=== PATIENT | male | born 1995 | race American Indian/Alaskan Native ===

== ENCOUNTER 2017-08-02 08:26 | Outpatient (CLI) | payer MEDICAID ==
[2017-08-02] MEDS ORDERED: XYLOCAINE TOPICAL 4% TP ONE ×2 (09:44→09:54)
== END 2017-08-02 08:27 | disposition home or self-care (01) ==
LOC: WOUND 08:26
PROVIDERS: ATTEND Internal Medicine
DX: L89.892 Pressure ulcer of other site, stage 2 (principal); L97.922 Non-pressure chronic ulcer of unspecified part of left lower leg with fat layer exposed; G80.0 Spastic quadriplegic cerebral palsy; G40.802 Other epilepsy, not intractable, without status epilepticus
CPT/HCPCS: 11042; G0463

== ENCOUNTER 2018-04-19 23:44 | Inpatient (IN) | payer MEDICAID ==
[2018-04-19] MEDS ORDERED: NACL 0.9% 1000 ML 1,000 ML IV ONE (23:54)
--- NOTE | 2018-04-19 23:59 | Emergency Department Report ---
ED Seizure HPI - General Stated Complaint: SEIZURE - History of Present Illness Initial Comments: Patient is 23 years old male with history of cerebral palsy and seizure. Patient on valproic acid and Topamax. Patient brought to the ER via EMS after patient had approximately 9 seizures today according to his mother report. Mother stated that patient missed his evening dose last night. She denied any history of fever, nausea or vomiting. She stated that patient wake up between seizures unable to eat. Mother also denied any recent injury. EMS reported that patient was actively seizing when they got on the scene patient is given 2 mg of Ativan IV and that up or did his seizure. Since then patient did not have any seizure. MD Complaint: seizure -: This morning Description of Episode: loss of consciousness, tonic-clonic movement, post-event confusion Witnessed:: Yes Seizure History: known seizure disorder Place: home Possible Precipitating Event: none - Related Data Home Medications Medication Instructions Recorded Confirmed Last Taken Divalproex Dr [Depakote] 500 mg PO DAILY 05/07/13 05/07/13 05/06/13 20:[address] [Depakote] 750 mg PO HS 05/07/13 05/07/13 05/06/13 20:00 Topiramate [Topamax] 50 mg PO BID 05/07/13 05/07/13 05/06/13 20:00 Allergies Allergy/AdvReac Type Severity Reaction Status Date / Time No Known Allergies Allergy Verified 06/04/13 18:22 ED Review of Systems ROS: Stated complaint: SEIZURE Other details as noted in HPI Comment: All other systems reviewed and negative Constitutional: denies: chills, fever Respiratory: denies: cough, orthopnea, shortness of breath, SOB with exertion, SOB at rest, wheezing Cardiovascular: denies: chest pain, palpitations, dyspnea on exertion Gastrointestinal: denies: abdominal pain, nausea ED Past Medical Hx - Past Medical History Hx Seizures: Yes Additional medical history: crebral palsy - Surgical History Additional Surgical History: tube placement - Social History Smoking Status: Never Smoker Substance Use Type: None - Medications Home Medications: Home Medications Medication Instructions Recorded Confirmed Last Taken Type Divalproex Dr [Depakote] 500 mg PO DAILY 05/07/13 05/07/13 05/06/13 20:[address] [Depakote] 750 mg PO HS 05/07/13 05/07/13 05/06/13 20:00 History Topiramate [Topamax] 50 mg PO BID 05/07/13 05/07/13 05/06/13 20:00 History ED Physical Exam - General Limitations: Altered Mental Status, Physical Limitation General appearance: postictal - Head Head exam: Present: atraumatic, normocephalic, normal inspection - Eye Eye exam: Present: normal appearance - ENT ENT exam: Present: normal exam, normal orophraynx, mucous membranes moist - Neck Neck exam: Present: normal inspection. Absent: tenderness, meningismus - Respiratory Respiratory exam: Present: normal lung sounds bilaterally. Absent: respiratory distress, wheezes, rales, rhonchi, stridor, chest wall tenderness, accessory muscle use, decreased breath sounds, prolonged expiratory - Cardiovascular Cardiovascular Exam: Present: regular rate, normal rhythm, normal heart sounds - GI/Abdominal GI/Abdominal exam: Present: soft, normal bowel sounds. Absent: distended, tenderness, guarding, rebound, rigid, mass, bruit, pulsatile mass, hernia - Neurological Exam Neurological exam: Present: altered - Skin Skin exam: Present: warm, intact, normal color ED Course Vital Signs 04/19/18 04/19/18 04/20/18 23:56 23:57 00:00 Temperature 97.8 F Pulse Rate 95 H 98 H 98 H Respiratory 15 14 15 Rate Blood Pressure 112/71 97/60 Blood Pressure 112/71 [Left] O2 Sat by Pulse 100 100 99 Oximetry 04/20/18 04/20/18 04/20/18 00:15 00:30 00:45 Temperature Pulse Rate 84 56 L 78 Respiratory 13 14 12 Rate Blood Pressure 97/61 125/88 101/73 Blood Pressure [Left] O2 Sat by Pulse 100 Oximetry ED Medical Decision Making - Lab Data Result diagrams: 04/19/18 23:59 04/19/18 23:59 - Medical Decision Making I discussed the patient is , he agreed to admit the patient to medical service. Critical care attestation.: If time is entered above; I have spent that time in minutes in the direct care of this critically ill patient, excluding procedure time. ED Disposition Clinical Impression: Seizure Disposition: DC-09 OP ADMIT IP TO THIS HOSP Is pt being admited?: Yes Condition: Stable
[2018-04-20 00:11] LABS: Basophils # (Auto) 0.1 K/mm3 (0.0-0.1); Basophils % (Auto) 1.3 % (0.0-1.8); Eosinophils % (Auto) 0.8 % (0.0-4.3); Hematocrit 45.2 % (35.5-45.6); Hemoglobin 14.9 gm/dl (11.8-15.2); Lymphocytes # (Auto) 0.8 K/mm3 (1.2-5.4); Lymphocytes % (Auto) 15.1 % (13.4-35.0); Mean Corpuscular HGB Conc 33 % (32-34); Mean Corpuscular Volume 101 fl (84-94); Monocytes # (Auto) 0.2 K/mm3 (0.0-0.8); Monocytes % (Auto) 3.4 % (0.0-7.3); Platelet Count 227 K/mm3 (140-440); Red Blood Count 4.48 M/mm3 (3.65-5.03); Red Cell Distribution Width 13.6 % (13.2-15.2)
[2018-04-20 00:25] LABS: Alanine Aminotransferase 12 units/L (7-56); Albumin 4.5 g/dL (3.9-5); BUN/Creatinine Ratio 13; Blood Urea Nitrogen 9 mg/dL (9-20); Calcium 9.1 mg/dL (8.4-10.2); Hemolysis Index 33
[2018-04-20 00:29] LABS: Bilirubin,Direct < 0.2 mg/dL (0-0.2)
[2018-04-20 00:58] LABS: Bilirubin,Urine NEG (Negative); Blood,Urine LG (Negative); Color,Urine Amber (Yellow); Mucus,Urine 3+ /HPF; Protein,Urine <15 mg/dL mg/dL (Negative)
[2018-04-20 01:06] LABS: RBC,Urine > 182.0 /HPF (0.0-6.0)
[2018-04-20] MEDS ORDERED: DepaCON 500 MG in NACL 0.9% 100 ML IV ONE (01:36)
[2018-04-20] MEDS ORDERED: TYLENOL PO PRN (02:35)
[2018-04-20] MEDS ORDERED: ZOFRAN IV PRN (02:35)
[2018-04-20] MEDS ORDERED: ATIVAN IV PRN (02:36)
--- NOTE | 2018-04-20 05:21 | History and Physical Report ---
CHIEF COMPLAINT: Recurrent seizure attack. HISTORY OF PRESENT ILLNESS: The patient is a 22-year-old male with medical history of cerebral palsy and seizure, who is on Depakote and Topamax and had multiple seizure attacks up to about 9 times within 12-24 hours prior to presentation. There was no history of fever, although the patient's mother said that the patient missed his evening dose of anti-seizure medication prior to presentation. There was no history of nausea and vomiting, no history of trauma or biting of tongue during the seizure. Mother also said that there was no history of shortness of breath or chest pain. PAST MEDICAL HISTORY: Pertinent for cerebral palsy and seizure disorder. PAST SURGICAL HISTORY: Pertinent for tube placement. FAMILY HISTORY: Noncontributory. SOCIAL HISTORY: The patient lives with family. Does not smoke, does not drink alcohol and does not use illicit drugs. MEDICATIONS: The patient is on Depakote 500 mg by mouth daily in the morning and 750 mg in the evening. Also, the patient is on Topamax 50 mg by mouth twice daily. ALLERGIES: There are no known drug allergies. REVIEW OF SYSTEMS: CONSTITUTIONAL: There is no fever, no chills, no diaphoresis. HEENT: There is no headache or sore throat. CARDIOVASCULAR SYSTEM: There is no chest pain or orthopnea. RESPIRATORY SYSTEM: There is no shortness of breath or cough. GASTROINTESTINAL SYSTEM: There is no nausea, no vomiting, no abdominal pain, diarrhea or constipation. NEUROLOGICAL SYSTEM: There is no numbness, no dizziness, no altered mental status, but there is seizure attack. MUSCULOSKELETAL SYSTEM: There is no joint pain or swelling. DERMATOLOGICAL SYSTEM: There is no skin rash or itching. GENITOURINARY SYSTEM: There is no dysuria, hematuria or flank pain. Rest of system review is normal. PHYSICAL EXAMINATION: GENERAL: At the time of exam, the patient was found to be sleeping quietly on his bed, having with IV Ativan for seizure and not in acute distress. VITAL SIGNS: Initially shows temperature of 97.8 degrees Fahrenheit, pulse of 95, respirations 15, blood pressure 112/71, O2 sat of 100% on room air. HEENT: Showed pupils to be equal, round, and reactive to light. NECK: Supple with no JVD or carotid bruit. CARDIOVASCULAR SYSTEM: Showed normal first and second heart sounds with no gallops or murmurs. RESPIRATORY SYSTEM: Show good air entry on both sides of the lung with no abnormal breath sounds. GASTROINTESTINAL SYSTEM: Show abdomen to be full, soft, nontender with no organomegaly or rigidity. NEUROLOGICAL: Shows no focal deficit. MUSCULOSKELETAL SYSTEM: Show no joint swelling or tenderness. DERMATOLOGIC SYSTEM: Show no skin rash or any evidence of trauma. GENITOURINARY: Show no costovertebral angle tenderness. PERTINENT LABORATORY AND IMAGING STUDIES: The patient has CBC done that came back unremarkable except for elevated segmented neutrophil of 79.4% on CBC differential. The patient's chemistry was unremarkable except for increasing chloride level of 109.2. Rest of the patient's chemistry was unremarkable. The patient's urinalysis showed jonah colored urine with trace ketones and trace urine leukocyte esterase with high urine blood and rbc's. The patient's Depakote level came back normal. DIAGNOSES: Recurrent seizure attack. PLAN OF CARE: 1. The patient will be admitted to telemetry. 2. The patient will be on IV Ativan 1 mg every 2 hours as needed for seizure. 3. The patient will be on IV normal saline at 100 mL an hour. 4. The patient will be on IV Zofran 4 mg every 8 hours as needed for nausea and vomiting. 5. The patient will be on his home medication as shown in the medication reconciliation section. 6. The patient will have Neurology consult with Dr. Mireille Estrada for recurrent seizure attack to evaluate the patient for possible medication adjustment. 7. The patient's diet will be regular diet. 8. DVT prophylaxis will be through heparin 5000 units subcutaneous q. 12 hours. JOB# [id number] OCN/NTS MTDD
[2018-04-20] MEDS: NACL 0.9% 1000 ML 1,000 ML IV SCH ×2 (06:23→16:21)
[2018-04-20] MEDS ORDERED: TOPAMAX PO SCH (10:00)
[2018-04-20] MEDS: HEPARIN SUB-Q SCH ×2 (13:27→22:05)
--- NOTE | 2018-04-20 16:21 | Progress Note ---
Assessment and Plan Assessment and plan: Patient is 22 yo man with a history of severe debilitating cerebral palsy with seizure disorder who presented to [facility] ED with multiple seizures episodes. Mother says he had a total of 9 seizures prior to arrival. He is confused and not eating. Mother reports missing evening dose of topamax and depakote prior to arrival but she states he has missed doses before and didn't have a seizure. She also admits that he is lost to Neurology follow-up because Dr. Gregory moved to [place] and she hasn't seen a Neurologist in over 6 months. Therefore, she is unaware the level of anti-seizure medications. EMS gave 2 mg IV ativan and broke the seizures. Status Epilepitus: continue anti-sz medications and iv ativan prn, consulted Neurology Acute encephalopathy due to seizures Severe malnutrition, bmi 13.5: consult [employer] prolonged inpatient services 32 minutes History Interval history: Patient was seen and examined. Follow-up on current diagnosis of seizure. Overnight uneventful. Patient nonverbal. Imaging, nursing note, chart, labs and old chart reviewed. Discussed with mother at bedside. Hospitalist Physical - Physical exam Narrative exam: Gen: thin cachetic, bmi 13.5 sleeping but responds to tactile stimuli HEENT: no head trauma, Pupil reactive, OP Clear Neck: supple, no adenopathy, no thyromegaly, no JVD CVS/Heart: RRR, normal S1S2, pulses present bilaterally Chest/Lungs: diminished bs bilateral due to effort, Symmetrical chest expansion, good air entry bilaterally GI/Abdomen: soft, NTND, good bowel sounds, no guarding or rebound /Bladder: no suprapubic tenderness, no CVA or paraspinal tenderness Extermity/Skin: wound breakdown, see wound care pictures, atrophic limb MSK: contracted x 4 Neuro: CN 2-12 grossly intact, doesn't follow commands Psych: confused - Constitutional Vitals: Temp Pulse Resp BP Pulse Ox 97.8 F 85 18 100/67 100 04/20/18 12:55 04/20/18 12:55 04/20/18 12:55 04/20/18 12:55 04/20/18 12:55 Results - Labs CBC & Chem 7: 04/19/18 23:59 04/19/18 23:59 Labs: Laboratory Last Values WBC 5.2 K/mm3 (4.5-11.0) 04/19/18 23:59 RBC 4.48 M/mm3 (3.65-5.03) 04/19/18 23:59 Hgb 14.9 gm/dl (11.8-15.2) 04/19/18 23:59 Hct 45.2 % (35.5-45.6) 04/19/18 23:59 MCV 101 fl (84-94) H 04/19/18 23:59 MCH 33 pg (28-32) H 04/19/18 23:59 MCHC 33 % (32-34) 04/19/18 23:59 RDW 13.6 % (13.2-15.2) 04/19/18 23:59 Plt Count 227 K/mm3 (140-440) 04/19/18 23:59 Lymph % (Auto) 15.1 % (13.4-35.0) 04/19/18 23:59 [place]kins % (Auto) 3.4 % (0.0-7.3) 04/19/18 23:59 Eos % (Auto) 0.8 % (0.0-4.3) 04/19/18 23:59 Baso % (Auto) 1.3 % (0.0-1.8) 04/19/18 23:59 Lymph # 0.8 K/mm3 (1.2-5.4) L 04/19/18 23:59 Tompkins # 0.2 K/mm3 (0.0-0.8) 04/19/18 23:59 Eos # 0.0 K/mm3 (0.0-0.4) 04/19/18 23:59 Baso # 0.1 K/mm3 (0.0-0.1) 04/19/18 23:59 Seg Neutrophils % 79.4 % (40.0-70.0) H 04/19/18 23:59 Seg Neutrophils # 4.1 K/mm3 (1.8-7.7) 04/19/18 23:59 Sodium 145 mmol/L (137-145) 04/19/18 23:59 Potassium 4.1 mmol/L (3.6-5.0) 04/19/18 23:59 Chloride 109.2 mmol/L (98-107) H 04/19/18 23:59 Carbon Dioxide 25 mmol/L (22-30) 04/19/18 23:59 Anion Gap 15 mmol/L 04/19/18 23:59 BUN 9 mg/dL (9-20) 04/19/18 23:59 Creatinine 0.7 mg/dL (0.8-1.5) L 04/19/18 23:59 Estimated GFR > 60 ml/min 04/19/18 23:59 BUN/Creatinine Ratio 13 % 04/19/18 23:59 Glucose 107 mg/dL (75-100) H 04/19/18 23:59 Calcium 9.1 mg/dL (8.4-10.2) 04/19/18 23:59 Total Bilirubin 0.40 mg/dL (0.1-1.2) 04/19/18 23:59 Direct Bilirubin < 0.2 mg/dL (0-0.2) 04/19/18 23:59 Indirect Bilirubin 0.2 mg/dL 04/19/18 23:59 AST 20 units/L (5-40) 04/19/18 23:59 ALT 12 units/L (7-56) 04/19/18 23:59 Alkaline Phosphatase 128 units/L (35-129) 04/19/18 23:59 Total Protein 6.4 g/dL (6.3-8.2) 04/19/18 23:59 Albumin 4.5 g/dL (3.9-5) 04/19/18 23:59 Albumin/Globulin Ratio 2.4 % 04/19/18 23:59 Urine Color Ginny (Yellow) 04/20/18 00:38 Urine Turbidity Clear (Clear) 04/20/18 00:38 Urine pH 5.0 (5.0-7.0) 04/20/18 00:38 Ur Specific [place] 1.030 (1.003-1.030) 04/20/18 00:38 Urine Protein <15 mg/dl mg/dL (Negative) 04/20/18 00:38 Urine Glucose (UA) Neg mg/dL (Negative) 04/20/18 00:38 Urine Ketones Tr mg/dL (Negative) 04/20/18 00:38 Urine Blood Lg (Negative) 04/20/18 00:38 Urine Nitrite Neg (Negative) 04/20/18 00:38 Urine Bilirubin Neg (Negative) 04/20/18 00:38 Urine Urobilinogen 4.0 mg/dL (<2.0) 04/20/18 00:38 Ur Leukocyte Esterase Tr (Negative) 04/20/18 00:38 Urine WBC (Auto) 4.0 /HPF (0.0-6.0) 04/20/18 00:38 Urine RBC (Auto) > 182.0 /HPF (0.0-6.0) 04/20/18 00:38 Urine Mucus 3+ /HPF 04/20/18 00:38 Valproic Acid 55.8 ug/mL (50-100) 04/19/18 23:59 Nutrition/Malnutrition Assess - Dietary Evaluation Nutrition/Malnutrition Findings: Nutrition Notes Start: 04/20/18 14:36 Freq: Status: Active Protocol: Document 04/20/18 14:36 RM (Rec: 04/20/18 14:49 RM [id number]) Nutrition Notes 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 Raffi 15 points. Per nurse pt had PEG in the past but eats by mouth now. Pt and pt mother in room at time of visit. Pt mother spoke on behalf of pt. Stated that pt has good appetite and that he ate 5 packets of oatmeal yesterday. Stated UBW was 100 lbs 3-4 weeks ago. Burn Absent Trauma Absent #1 Nutrition Diagnosis Predicted suboptimal energy intake Etiology cerebral palsy As Evidenced by Signs and Symptoms pt BMI of 13.5, 14% wt loss X 3-4 weeks Is patient on ventilator? No Is Patient Ambulatory and/or Out of Bed No REE-([facility]-confined to bed) 1621.188 Kcal/Kg value to use for calculation 54 Approximate Energy Requirements Using 2111 kcal/Kg Calculation Used for Recommendations Kcal/kg Additional Notes Protein Needs: 47-59g (1.2-1. 5g/kg) Fluid Needs: 1 ml/kcal Nutrition Intervention Change Diet Order: Advance diet when medically able Add Supplement/Snack (indicate name/kcal Ensure Enlive Burney BID /protein ) Provides kCal: 700 Provides Protein (gm) 40 Goal #1 Meet at least 75% of calorie and protein needs via PO and ONS intakes Anticipated Discharge Needs: Unable to determine at this time Follow-Up By: 04/22/18 Additional Comments Follow for PO and ONS intakes
--- NOTE | 2018-04-20 17:26 | Consultation ---
History of Present Illness Consult date: 04/20/18 Requesting physician: BECKA BOYD Reason for Consult: seizures History of present illness: This is a 22 year old male with cerebral palsy, who developed generalized seizures at 4 mos. of age. He was treated until age 5 with valproate and phenobarb. At age 5 his seizure activity slowed down and he went off anticon vulsants. As the teen years approached trhey became much more frequent and of longer duration. He was placed back on valproate and Topomax was added as an adjunct to shorten the duration of each episode. The pt. has been taking his medicines regularly, per his mother, his caregiver. He missed one dose on Sun., 04/17/18. Mother states that his usual baseline is to have one at most 2 seizures per week. On Sun. she noted him to have a total of 3 spells. On 04/18/18, he had about 5, then on . the day of admission she documented 9 spells total. He was brought to ER where Ativan was given and the seizures broke. He is currently resting comfortably, and has had no further seizures s anna coming to the room. Mom is concerned about proper dosing and levels. She hopes to find a new n eurologist to care for him, as his previous one has moved away. Past History Past Medical History: seizures Social history: lives with family. denies: smoking, alcohol abuse Family history: diabetes, hypertension, other (no family history of seizures.) Medications and Allergies Allergies Allergy/AdvReac Type Severity Reaction Status Date / Time No Known Allergies Allergy Verified 06/04/13 18:22 Home Medications Medication Instructions Recorded Confirmed Last Taken Type Divalproex Dr [Depakote] 500 mg PO QAM 05/07/13 04/20/18 05/06/13 20:[address] [Depakote] 750 mg PO HS 05/07/13 04/20/18 05/06/13 20:00 History Topiramate [Topamax] 100 mg PO BID 05/07/13 04/20/18 05/06/13 20:00 History Active Meds: Active Medications Acetaminophen (Tylenol) 650 mg PO Q4H PRN PRN Reason: Fever >101 Divalproex Sodium (Depakote Dr) 500 mg PO DAILY PARISH Last Admin: 04/20/18 13:23 Dose: 500 mg Documented by: Heparin Sodium (Porcine) (Heparin) 5,000 unit SUB-Q Q12HR PARISH Last Admin: 04/20/18 13:27 Dose: 5,000 unit Documented by: Sodium Chloride (Nacl 0.9% 1000 Ml) 1,000 mls @ 100 mls/hr IV DIRECT PARISH Last Admin: 04/20/18 16:21 Dose: 100 mls/hr Documented by: Lorazepam (Ativan) 1 mg IV Q2H PRN PRN Reason: Seizures Ondansetron HCl (Zofran) 4 mg IV Q8H PRN PRN Reason: Nausea And Vomiting Topiramate (Topamax) 50 mg PO BID PARISH Review of Systems ROS unobtainable: due to mental status Physical Examination - Vital Signs Vital Signs: Vital Signs Temp Pulse Resp BP Pulse Ox 97.8 F 95 H 15 112/71 100 04/19/18 23:56 04/19/18 23:56 04/19/18 23:56 04/19/18 23:56 04/19/18 23:56 - Physical Exam Narrative exam: Neurological exam - Pt is lying, in a position resting comfortably but moving around. Allows the examiner to check some functions. According to mother, just now awakening from postictal state. He does not speak. He does not follow commands. 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 Face is symmetric Motor - Moves all 4 extremities equally well, no weakness detected. Reflexes - trace throughout. Sensory - notices touch and sharp by movement and withdrawal. Mother states that Gladys does not walk. He either stays in his wheelchair or crawls on the floor at home in order to get around. She states that he can write his name and enjoys coloring and writing. Results - Laboratory Findings CBC and BMP: 04/19/18 23:59 04/19/18 23:59 Abnormal Lab Findings: Abnormal Labs 04/19/18 04/19/18 23:59 23:59 MCV 101 H MCH 33 H Lymph # 0.8 L Seg Neutrophils % 79.4 H Chloride 109.2 H Creatinine 0.7 L Glucose 107 H Assessment and Plan 22 yr old with cerebral palsy and long history of seizures. He presented with a flurry of difficult to control seizures. He has been on his seizure medicne dosage for at least 6 months. Itis unclear why he went into these repeated episodes. Will check for infection and adjust medication. Level of Valproate is 55, which is low normal. Plan - Check urine culture, B-12 level, TFTs Will increase Depakote to 1000 mg in a.m., 500 mg in pm. Will leave Topomax at 100 mg BID
[2018-04-20] MEDS: TOPAMAX PO SCH (22:05)
[2018-04-20 22:33] LABS: Free T4 (Free Thyroxine) 1.12 ng/dL (0.76-1.46)
[2018-04-21 05:29] VITALS: BP 107/76
[2018-04-21] MEDS: TOPAMAX PO SCH (09:19)
[2018-04-21] MEDS: HEPARIN SUB-Q SCH (09:20)
--- NOTE | 2018-04-21 15:04 | Discharge Summary ---
Providers - Providers Date of Admission: 04/20/18 02:32 Date of discharge: 04/21/18 Attending physician: BECKA BOYD 04/20/18 06:00 Consult to Physician [CONS] Routine Comment: Consulting Provider: SHAWN MICHAEL Physician Instructions: Reason For Exam: SEIZURES 04/20/18 07:54 Consult to Wound/ET Nurse [CONS] Urgent Reason For Exam: wound eval, left knee open wound Primary care physician: WILLIAM WOODRUFF Hospitalization Condition: Stable Hospital course: Patient is 22 yo man with a history of severe debilitating cerebral palsy with seizure disorder who presented to [facility] ED with multiple seizures episodes. Mother says he had a total of 9 seizures prior to arrival. He is confused and not eating. Mother reports missing evening dose of topamax and depakote prior to arrival but she states he has missed doses before and didn't have a seizure. She also admits that he is lost to Neurology follow-up because Dr. Gregory moved to [place] and she hasn't seen a Neurologist in over 6 months. Therefore, she is unaware the level of anti-seizure medications. EMS gave 2 mg IV ativan and broke the seizures. 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 Disposition: DC-01 TO HOME OR SELFCARE Time spent for discharge: 36 minutes Core Measure Documentation - Palliative Care Palliative Care/ Comfort Measures: Not Applicable - Core Measures Any of the following diagnoses?: none - VTE Discharge Requirements Deep Vein Thrombosis/Pulmonary Embolism Present on Admission: No Has pt received <5 days of overlap therapy or INR<2.0: No Anticoagulant overlap therapy prescribed at discharge: No Contraindication No Overlap Therapy order at DC: Not Indicated Exam - Physical Exam Narrative exam: Gen: thin cachetic, bmi 13.5 sleeping but responds to tactile stimuli HEENT: no head trauma, Pupil reactive, OP Clear Neck: supple, no adenopathy, no thyromegaly, no JVD CVS/Heart: RRR, normal S1S2, pulses present bilaterally Chest/Lungs: diminished bs bilateral due to effort, Symmetrical chest expansion, good air entry bilaterally GI/Abdomen: soft, NTND, good bowel sounds, no guarding or rebound /Bladder: no suprapubic tenderness, no CVA or paraspinal tenderness Extermity/Skin: wound breakdown, see wound care pictures, atrophic limb MSK: contracted x 4 Neuro: CN 2-12 grossly intact, doesn't follow commands Psych: confused - Constitutional Vitals: Temp Pulse Resp BP Pulse Ox 98.0 F 78 18 107/76 99 04/21/18 04:15 04/20/18 23:31 04/21/18 04:15 04/21/18 04:15 04/20/18 23:31 Plan Activity: fall precautions Diet: advance as tolerated Additional Instructions: Dr. Gamaliel Davenport. Neurology. [address] [place] [id number]. [phone]. I called the office and they take "regular" Medicaid Follow up with: WILLIAM WOODRUFF MD [Primary Care Provider] - 3-5 Days GAMALIEL DAVENPORT MD [Referring] - 7 Days Prescriptions: Divalproex [Jeanette Llanes] 1,000 mg PO QDAY #30 tablet Divalproex [Jeanette Llanes] 500 mg PO HS #30 tablet
== END 2018-04-21 18:00 | disposition home or self-care (01) | DRG 100 ==
LOC: ED 23:44 → 4A 04-20 02:32
PROVIDERS: ADMIT Internal Medicine; ATTEND Internal Medicine
DX: G40.901 Epilepsy, unspecified, not intractable, with status epilepticus (principal); E43 Unspecified severe protein-calorie malnutrition; G80.9 Cerebral palsy, unspecified; Z71.3 Dietary counseling and surveillance; Z82.49 Family history of ischemic heart disease and other diseases of the circulatory system; Z83.3 Family history of diabetes mellitus; Z68.1 Body mass index [BMI] 19.9 or less, adult; Z79.899 Other long term (current) drug therapy
CPT/HCPCS: 36415; 80048; 80076; 80164; 81001; 82607; 84439; 84443; 85025; 87086; G0378; J1644; J2060; J7030